=== PATIENT | female | born 1960 | race American Indian/Alaskan Native ===

== ENCOUNTER 2018-06-12 00:26 | Inpatient (IN) | payer OTHER ==
[2018-06-12] MEDS ORDERED: ATIVAN IM PRN (00:35)
--- NOTE | 2018-06-12 00:37 | Emergency Department Report ---
ED General Adult HPI - General Chief complaint: Overdose Stated complaint: POSS OD Time Seen by Provider: 06/12/18 00:34 Source: patient, EMS (verbal report received from EMS.ems notes not available at time of chart dictation), RN notes reviewed, old records reviewed Mode of arrival: Stretcher Limitations: Altered Mental Status, Physical Limitation - History of Present Illness Initial comments: This is a 57-year-old female with a history of psychiatric disease, who was brought to the hospital by emergency medical services for presumed overdose. EM S reports they were contacted by family, and found the patient in a stretcher, with an empty pill bottle. It is unknown what time the alleged ingestion took place, an unknown how many tablets the patient took, and it is unknown what the intention of the ingestion was. It is unknown if the patient has coingestions. In the emergency room, the patient is sleepy, protecting her airway, not able to answer open-ended or closing the questions. Currently, no family is available for collateral information. Patient has a Klonopin prescription, 0.5 mg, 60 tablets, that was dispensed on the of this month. No additional history is available at this time. -: unknown Radiation: other (patient not able to describe radiation, qualitative nature of symptoms, exacerbating or relieving factors.) Quality: other Consistency: other Improves with: other Worsens with: other Associated Symptoms: other - Related Data Home Medications Medication Instructions Recorded Confirmed Last Taken Cetirizine HCl [ZyrTEC] 10 mg PO DAILY 02/25/14 03/14/15 03/05/14 09:00 Citalopram Hydrobromide [celeXA] 40 mg PO DAILY 02/25/14 03/14/15 03/09/14 12:00 Fluticasone (Nf) [Flovent HFA] 1 puff IH DAILY 02/25/14 03/14/15 03/08/14 Albuterol *Only Ed* [Proventil 2.5 mg IH Q4H PRN 03/14/15 03/14/15 Unknown 0.5% NEBS] DULoxetine [Cymbalta] 30 mg PO BID 03/14/15 03/14/15 Unknown Morphine ER [Ms Contin ER] 15 mg PO BID 03/14/15 03/14/15 Unknown clonazePAM [KlonoPIN] 2 mg PO DAILY 03/14/15 03/14/15 Unknown diphenhydrAMINE [Benadryl CAP] 50 mg PO Q8HR PRN 03/14/15 03/14/15 Unknown Previous Rx's Medication Instructions Recorded Last Taken Type Tapentadol [Nucynta] 75 mg PO Q6H #60 tablet 03/12/14 Unknown Rx Allergies Allergy/AdvReac Type Severity Reaction Status Date / Time codeine Allergy Hives,Itchi Verified 03/14/15 22:44 ng ED Review of Systems ROS: Stated complaint: POSS OD Other details as noted in HPI Comment: Unobtainable due to pts medical conditions ED Past Medical Hx - Past Medical History Hx Congestive Heart Failure: No Hx Diabetes: No Hx Arthritis: Yes Hx Psychiatric Treatment: Yes (PTSD/Depression/ Anxiety) Hx Asthma: No Hx COPD: No - Surgical History Additional Surgical History: Lumbar fusion; Knee Sx, Back SX, right foot fracture in December - Social History Smoking Status: Unknown if ever smoked Substance Use Type: Prescribed - Medications Home Medications: Home Medications Medication Instructions Recorded Confirmed Last Taken Type Cetirizine HCl [ZyrTEC] 10 mg PO DAILY 02/25/14 03/14/15 03/05/14 09:00 History Citalopram Hydrobromide [celeXA] 40 mg PO DAILY 02/25/14 03/14/15 03/09/14 12:00 History Fluticasone (Nf) [Flovent HFA] 1 puff IH DAILY 02/25/14 03/14/15 03/08/14 History Tapentadol [Nucynta] 75 mg PO Q6H #60 tablet 03/12/14 03/14/15 Unknown Rx Albuterol *Only Ed* [Proventil 2.5 mg IH Q4H PRN 03/14/15 03/14/15 Unknown History 0.5% NEBS] DULoxetine [Cymbalta] 30 mg PO BID 03/14/15 03/14/15 Unknown History Morphine ER [Ms Contin ER] 15 mg PO BID 03/14/15 03/14/15 Unknown History clonazePAM [KlonoPIN] 2 mg PO DAILY 03/14/15 03/14/15 Unknown History diphenhydrAMINE [Benadryl CAP] 50 mg PO Q8HR PRN 03/14/15 03/14/15 Unknown History ED Physical Exam - General Limitations: Altered Mental Status, Other General appearance: lethargic, obese - Head Head exam: Present: atraumatic, normocephalic - Eye Eye exam: Present: normal appearance, PERRL, EOMI - ENT ENT exam: Present: normal exam, normal orophraynx, mucous membranes moist, normal external ear exam - Neck Neck exam: Present: normal inspection, full ROM. Absent: tenderness, meningismus - Respiratory Respiratory exam: Present: decreased breath sounds. Absent: respiratory distr ess, wheezes, rales, rhonchi, stridor - Cardiovascular Cardiovascular Exam: Present: regular rate, normal rhythm, normal heart sounds. Absent: bradycardia, tachycardia, irregular rhythm, systolic murmur, diastolic murmur, rubs, gallop - GI/Abdominal GI/Abdominal exam: Present: soft. Absent: distended, tenderness, guarding, rebound, rigid, pulsatile mass - Extremities Exam Extremities exam: Present: normal inspection (moving 4 extremities spontaneously), other (2+ pulses noted in the bilateral upper, lower extremities. Compartments soft. No long bony tenderness. The pelvis is stable.). Absent: pedal edema, joint swelling, calf tenderness - Back Exam Back exam: Present: normal inspection. Absent: tenderness, CVA tenderness (R), paraspinal tenderness, vertebral tenderness - Neurological Exam Neurological exam: Present: altered, other (plan 4 extremities spontaneously. Detailed neurologic examination not possible secondary to intoxication, depressed mental status) - Psychiatric Psychiatric exam: Present: depressed - Skin Skin exam: Present: warm, dry, intact, normal color. Absent: rash ED Course Vital Signs 06/12/18 06/12/18 06/12/18 00:32 00:45 01:00 Pulse Rate 81 98 H 82 Respiratory 17 15 19 Rate Blood Pressure 129/85 114/73 O2 Sat by Pulse 94 Oximetry 06/12/18 01:15 Pulse Rate 88 Respiratory 21 Rate Blood Pressure 114/73 O2 Sat by Pulse 91 Oximetry - Reevaluation(s) Reevaluation #1: 06/12/18 00:56 Differential diagnosis, including not limited to: Overdose, suicidality, intracranial lesion, electrolyte derangement Assessment and plan: 57-year-old female with probable overdose, altered, but protecting her airway, saturating at 97% on room air, with no history of trauma, no physical examination evidence to suggest traumatic injury. The patient is placed on a 1013. Screening laboratory studies obtained. IV, monitor, supplemental oxygen administered, will discuss with the [place] [facility] once her initial diagnostics have resulted. The patient is not a charcoal candidate as she has a depressed mental status, at her time of ingestion is unknown. Reevaluation #2: 06/12/18 02:[address] scan of the brain is negative. Screening laboratory studies unremarkable with the exception of elevated blood alcohol level. X-ray of the chest suggest atelectasis versus aspiration pneumonia. Patient continues to be sleepy. Contacted [facility], and discussed the case with the sales donor recruitment representative, Candy, who agrees that the patient would not benefit from charcoal given her altered mental status, and agrees with supportive care. Given chronic history of benzodiazepine use, no Romazicon is recommended, as it may precipitate seizures. As per [facility], benzodiazepine allegedly ingested may have a prolonged half-life, and we will therefore admit the patient to the medical service for cardiac monitoring and airway monitoring. Case is presented to the Hospital physician, Dr. Quinn, who has accepted the patient to the medical service. Discussed with patient's , explained significance of laboratory studies and 1013. The articulates understanding. The patient requires hospitalization because she is altered and requires cardiac monitoring and airway monitoring. ED Medical Decision Making - Lab Data Result diagrams: 06/12/18 00:40 06/12/18 00:40 Vital Signs 06/12/18 06/12/18 06/12/18 00:32 00:45 01:00 Pulse Rate 81 98 H 82 Respiratory 17 15 19 Rate Blood Pressure 129/85 114/73 O2 Sat by Pulse 94 Oximetry 06/12/18 01:15 Pulse Rate 88 Respiratory 21 Rate Blood Pressure 114/73 O2 Sat by Pulse 91 Oximetry Lab Results 06/12/18 06/12/18 06/12/18 Range/Units 00:40 00:40 00:40 WBC 6.9 (4.5-11.0) K/mm3 RBC 3.90 (3.65-5.03) M/mm3 Hgb 12.0 (10.1-14.3) gm/dl Hct 34.0 (30.3-42.9) % MCV 87 (79-97) fl MCH 31 (28-32) pg MCHC 35 H (30-34) % RDW 14.1 (13.2-15.2) % Plt Count 312 (140-440) K/mm3 Sodium 139 (137-145) mmol/L Potassium 4.0 (3.6-5.0) mmol/L Chloride 101.8 (98-107) mmol/L Carbon Dioxide 23 (22-30) mmol/L Anion Gap 18 mmol/L BUN 10 (7-17) mg/dL Creatinine 0.8 (0.7-1.2) mg/dL Estimated GFR > 60 ml/min BUN/Creatinine Ratio 13 % Glucose 79 (65-100) mg/dL Lactic Acid (0.7-2.0) mmol/L Calcium 9.0 (8.4-10.2) mg/dL Magnesium 2.00 (1.7-2.3) mg/dL Total Bilirubin 0.30 (0.1-1.2) mg/dL AST 32 (5-40) units/L ALT 26 (7-56) units/L Alkaline Phosphatase 122 (35-129) units/L Total Creatine Kinase 150 H (30-135) units/L Total Protein 7.6 (6.3-8.2) g/dL Albumin 4.0 (3.9-5) g/dL Albumin/Globulin Ratio 1.1 % Urine Color (Yellow) Urine Turbidity (Clear) Urine pH (5.0-7.0) Ur Specific [place] (1.003-1.030) Urine Protein (Negative) mg/dL Urine Glucose (UA) (Negative) mg/dL Urine Ketones (Negative) mg/dL Urine Blood (Negative) Urine Nitrite (Negative) Urine Bilirubin (Negative) Urine Urobilinogen (<2.0) mg/dL Ur Leukocyte Esterase (Negative) Urine WBC (Auto) (0.0-6.0) /HPF Urine RBC (Auto) (0.0-6.0) /HPF Hyaline Casts /LPF Salicylates < 0.3 L (2.8-20.0) mg/dL Urine Opiates Screen Urine Methadone Screen Acetaminophen (10.0-30.0) ug/mL Ur Barbiturates Screen Ur Phencyclidine Scrn Ur Amphetamines Screen U Benzodiazepines Scrn Urine Cocaine Screen U Marijuana (THC) Screen Drugs of Abuse Note Plasma/Serum Alcohol (0-0.07) % 06/12/18 06/12/18 06/12/18 Range/Units 00:40 00:40 01:21 WBC (4.5-11.0) K/mm3 RBC (3.65-5.03) M/mm3 Hgb (10.1-14.3) gm/dl Hct (30.3-42.9) % MCV (79-97) fl MCH (28-32) pg MCHC (30-34) % RDW (13.2-15.2) % Plt Count (140-440) K/mm3 Sodium (137-145) mmol/L Potassium (3.6-5.0) mmol/L Chloride (98-107) mmol/L Carbon Dioxide (22-30) mmol/L Anion Gap mmol/L BUN (7-17) mg/dL Creatinine (0.7-1.2) mg/dL Estimated GFR ml/min BUN/Creatinine Ratio % Glucose (65-100) mg/dL Lactic Acid (0.7-2.0) mmol/L Calcium (8.4-10.2) mg/dL Magnesium (1.7-2.3) mg/dL Total Bilirubin (0.1-1.2) mg/dL AST (5-40) units/L ALT (7-56) units/L Alkaline Phosphatase (35-129) units/L Total Creatine Kinase (30-135) units/L Total Protein (6.3-8.2) g/dL Albumin (3.9-5) g/dL Albumin/Globulin Ratio % Urine Color Colorless (Yellow) Urine Turbidity Clear (Clear) Urine pH 6.0 (5.0-7.0) Ur Specific [place] 1.001 L (1.003-1.030) Urine Protein <15 mg/dl (Negative) mg/dL Urine Glucose (UA) Neg (Negative) mg/dL Urine Ketones Neg (Negative) mg/dL Urine Blood Neg (Negative) Urine Nitrite Neg (Negative) Urine Bilirubin Neg (Negative) Urine Urobilinogen < 2.0 (<2.0) mg/dL Ur Leukocyte Esterase Neg (Negative) Urine WBC (Auto) < 1.0 (0.0-6.0) /HPF Urine RBC (Auto) 1.0 (0.0-6.0) /HPF Hyaline Casts 1 /LPF Salicylates (2.8-20.0) mg/dL Urine Opiates Screen Urine Methadone Screen Acetaminophen < 5.0 L (10.0-30.0) ug/mL Ur Barbiturates Screen Ur Phencyclidine Scrn Ur Amphetamines Screen U Benzodiazepines Scrn Urine Cocaine Screen U Marijuana (THC) Screen Drugs of Abuse Note Plasma/Serum Alcohol 0.14 H (0-0.07) % 06/12/18 06/12/18 Range/Units 01:21 01:29 WBC (4.5-11.0) K/mm3 RBC (3.65-5.03) M/mm3 Hgb (10.1-14.3) gm/dl Hct (30.3-42.9) % MCV (79-97) fl MCH (28-32) pg MCHC (30-34) % RDW (13.2-15.2) % Plt Count (140-440) K/mm3 Sodium (137-145) mmol/L Potassium (3.6-5.0) mmol/L Chloride (98-107) mmol/L Carbon Dioxide (22-30) mmol/L Anion Gap mmol/L BUN (7-17) mg/dL Creatinine (0.7-1.2) mg/dL Estimated GFR ml/min BUN/Creatinine Ratio % Glucose (65-100) mg/dL Lactic Acid 3.50 H* (0.7-2.0) mmol/L Calcium (8.4-10.2) mg/dL Magnesium (1.7-2.3) mg/dL Total Bilirubin (0.1-1.2) mg/dL AST (5-40) units/L ALT (7-56) units/L Alkaline Phosphatase (35-129) units/L Total Creatine Kinase (30-135) units/L Total Protein (6.3-8.2) g/dL Albumin (3.9-5) g/dL Albumin/Globulin Ratio % Urine Color (Yellow) Urine Turbidity (Clear) Urine pH (5.0-7.0) Ur Specific [place] (1.003-1.030) Urine Protein (Negative) mg/dL Urine Glucose (UA) (Negative) mg/dL Urine Ketones (Negative) mg/dL Urine Blood (Negative) Urine Nitrite (Negative) Urine Bilirubin (Negative) Urine Urobilinogen (<2.0) mg/dL Ur Leukocyte Esterase (Negative) Urine WBC (Auto) (0.0-6.0) /HPF Urine RBC (Auto) (0.0-6.0) /HPF Hyaline Casts /LPF Salicylates (2.8-20.0) mg/dL Urine Opiates Screen Presumptive negative Urine Methadone Screen Presumptive negative Acetaminophen (10.0-30.0) ug/mL Ur Barbiturates Screen Presumptive negative Ur Phencyclidine Scrn Presumptive negative Ur Amphetamines Screen Presumptive negative U Benzodiazepines Scrn Presumptive negative Urine Cocaine Screen Presumptive negative U Marijuana (THC) Screen Presumptive negative Drugs of Abuse Note Disclamer Plasma/Serum Alcohol (0-0.07) % - EKG Data -: EKG Interpreted by Nh EKG shows normal: sinus rhythm Rate: normal - EKG Data When compared to previous EKG there are: previous EKG unavailable 06/12/18 00:57 Sinus, 82 bpm, left axis deviation, left anterior fascicular block, low voltage in the lateral leads, prolonged [place] interval, abnormal EKG, not consistent with ST elevation myocardial infarction. - Radiology Data Radiology results: pending, report reviewed, image reviewed Noncontrast CT scan of the brain is negative. X-ray of the chest suggest bilateral atelectasis versus pneumonia Critical care attestation.: If time is entered above; I have spent that time in minutes in the direct care of this critically ill patient, excluding procedure time. ED Disposition Clinical Impression: Overdose Qualifiers: Encounter type: initial encounter Injury intent: undetermined intent Qualified Code(s): T50.904A - Poisoning by unspecified drugs, medicaments and biological substances, undetermined, initial encounter Disposition: -09 OP ADMIT IP TO THIS HOSP Is pt being admited?: Yes Condition: Fair Referrals: GILBERT COX MD [Primary Care Provider] - 3-5 Days
--- NOTE | 2018-06-12 01:06 | XRay Report ---
FINAL REPORT EXAM: XR CHEST 1V AP HISTORY: overdose resp depression COMPARISON: None available. FINDINGS: Frontal view(s) of the chest obtained. Cardiac silhouette within normal limits. Mild patchy opacities at the lung bases concerning for atelectasis and/or pneumonia. No pneumothorax. IMPRESSION: Mild patchy opacities at the lung bases concerning for atelectasis and/or pneumonia.
[2018-06-12 01:17] LABS: Mean Corpuscular HGB Conc 35 % (30-34); Mean Corpuscular Volume 87 fl (79-97); Platelet Count 312 K/mm3 (140-440); Red Cell Distribution Width 14.1 % (13.2-15.2)
[2018-06-12 01:25] LABS: BUN/Creatinine Ratio 13; Blood Urea Nitrogen 10 mg/dL (7-17); Hemolysis Index 115
[2018-06-12] MEDS ORDERED: LEVAQUIN 750MG/150ML 750 MG/150 ML BAG IV ONE (01:25)
[2018-06-12 01:50] LABS: Alanine Aminotransferase 26 units/L (7-56)
[2018-06-12 01:56] LABS: Bilirubin,Urine NEG (Negative); Blood,Urine NEG (Negative); Color,Urine Colorless (Yellow); Hyaline Casts,Urine 1 /LPF; Protein,Urine <15 mg/dL mg/dL (Negative); Urobilinogen,Urine < 2.0 mg/dL (<2.0); WBC,Urine < 1.0 /HPF (0.0-6.0)
--- NOTE | 2018-06-12 01:59 | Cat Scan Report ---
FINAL REPORT EXAM: CT HEAD/BRAIN WO CON HISTORY: ams COMPARISON: None available. TECHNIQUE: Axial images obtained skull base through vertex. FINDINGS: No acute intracranial hemorrhage, midline shift or pathologic extra axial fluid collection. Ventricle s and cisterns are normal in size and configuration for the patient's age. Kendrick-white differentiation preserved. Calvarium grossly intact. Visualized ocular globes are grossly unremarkable. Minimal muco jacqueline thickening the visualized paranasal sinuses. Mastoid air cells are clear. IMPRESSION: No grossly acute intracranial abnormality.
[2018-06-12 02:03] LABS: Amphetamine Screen,Urine PRESUMPTIVE NEGATIVE; Benzodiazepines Screen,Urine PRESUMPTIVE NEGATIVE; Cannabinoid Screen,Urine PRESUMPTIVE NEGATIVE; Cocaine Screen,Urine PRESUMPTIVE NEGATIVE; Methadone Screen,Urine PRESUMPTIVE NEGATIVE; Opiate Screen,Urine PRESUMPTIVE NEGATIVE
[2018-06-12] MEDS ORDERED: NACL 0.9% 1000 ML 1,000 ML IV ONE (02:23)
[2018-06-12] MEDS ORDERED: D5/0.45NS 1,000 ML IV SCH (03:00)
[2018-06-12] MEDS ORDERED: ZOFRAN IV PRN (04:59)
[2018-06-12] MEDS ORDERED: SODIUM CHLORIDE FLUSH SYRINGE 10 ML IV PRN (04:59)
[2018-06-12] MEDS ORDERED: TYLENOL PO PRN (04:59)
--- NOTE | 2018-06-12 04:59 | History and Physical Report ---
History of Present Illness Date of examination: 06/12/18 History of present illness: 57-year-old woman was brought to the emergency room for evaluation. Patient got a new prescription of Klonopin on May 30 in all the pills are gone, she is being evaluated for possible overdose. review of system unavailable PAST MEDICAL HISTORY: Unknown PAST SURGICAL HISTORY: Unknown SOCIAL HISTORY: Unknown FAMILY HISTORY: Unknown Medications and Allergies Allergies Allergy/AdvReac Type Severity Reaction Status Date / Time codeine Allergy Hives,Itchi Verified 03/14/15 22:44 ng Home Medications Medication Instructions Recorded Confirmed Last Taken Type Cetirizine HCl [ZyrTEC] 10 mg PO DAILY 02/25/14 03/14/15 03/05/14 09:00 History Citalopram Hydrobromide [celeXA] 40 mg PO DAILY 02/25/14 03/14/15 03/09/14 12:00 History Fluticasone (Nf) [Flovent HFA] 1 puff IH DAILY 02/25/14 03/14/15 03/08/14 History Tapentadol [Nucynta] 75 mg PO Q6H #60 tablet 03/12/14 03/14/15 Unknown Rx Albuterol *Only Ed* [Proventil 2.5 mg IH Q4H PRN 03/14/15 03/14/15 Unknown History 0.5% NEBS] DULoxetine [Cymbalta] 30 mg PO BID 03/14/15 03/14/15 Unknown History Morphine ER [Ms Contin ER] 15 mg PO BID 03/14/15 03/14/15 Unknown History clonazePAM [KlonoPIN] 2 mg PO DAILY 03/14/15 03/14/15 Unknown History diphenhydrAMINE [Benadryl CAP] 50 mg PO Q8HR PRN 03/14/15 03/14/15 Unknown History Active Meds: Active Medications Dextrose/Sodium Chloride (D5/0.45ns) 1,000 mls @ 0 mls/hr IV DIRECT OMAR Lorazepam (Ativan) 2 mg IM Q4HR PRN PRN Reason: Agitation Exam - Physical Exam Narrative exam: General Apperance: The patient lying in bed, breathing comfortable HEENT: Normocephalic, atraumatic. Pupils equally round and reactive to light, EOMI, no sclericterus or JVD or thyromegaly or nodule. , no carotid bruit, mucous membranes moist, no exudate or erythema Heart: S1-S2, regular is rhythm Lungs: Clear to auscultation bilaterally, breathing comfortable Abdomen: Positive bowel sounds, soft, nontender, nondistended, no organomegaly Extremities: No edema cyanosis clubbing Skin: no rash, nodule, warm and dry Neuro: sedated - Constitutional Vitals: Temp Pulse Resp BP Pulse Ox 98.3 F 72 17 122/67 97 06/12/18 02:21 06/12/18 04:31 06/12/18 04:31 06/12/18 04:31 06/12/18 04:31 Results - Labs CBC & Chem 7: 06/12/18 00:40 06/12/18 00:40 Labs: Abnormal lab results 06/12/18 06/12/18 06/12/18 Range/Units 00:40 00:40 00:40 MCHC 35 H (30-34) % Lactic Acid (0.7-2.0) mmol/L Total Creatine Kinase 150 H (30-135) units/L Ur Specific [place] (1.003-1.030) Salicylates < 0.3 L (2.8-20.0) mg/dL Acetaminophen (10.0-30.0) ug/mL Plasma/Serum Alcohol (0-0.07) % 06/12/18 06/12/18 06/12/18 Range/Units 00:40 00:40 01:21 MCHC (30-34) % Lactic Acid (0.7-2.0) mmol/L Total Creatine Kinase (30-135) units/L Ur Specific [place] 1.001 L (1.003-1.030) Salicylates (2.8-20.0) mg/dL Acetaminophen < 5.0 L (10.0-30.0) ug/mL Plasma/Serum Alcohol 0.14 H (0-0.07) % 06/12/18 06/12/18 Range/Units 01:29 02:30 MCHC (30-34) % Lactic Acid 3.50 H* 3.00 H* (0.7-2.0) mmol/L Total Creatine Kinase (30-135) units/L Ur Specific [place] (1.003-1.030) Salicylates (2.8-20.0) mg/dL Acetaminophen (10.0-30.0) ug/mL Plasma/Serum Alcohol (0-0.07) % - Imaging and Cardiology Chest x-ray: report reviewed CT Scan - head: report reviewed Assessment and Plan Assessment Possible overdose Sepsis Pneumonia, aspiration Plan Admit medicine Start IV fluids, zosyn, consult psych DVT prophylaxis
[2018-06-12] MEDS ORDERED: NACL 0.9% 1000 ML 2,000 ML IV ONE (06:40)
[2018-06-12] MEDS ORDERED: NACL 0.9% 1000 ML 1,000 ML ONE (08:50)
[2018-06-12] MEDS ORDERED: ZOSYN/NS 4.5GM/100ML 4.5 GM/100 ML VIAL IV ONE (08:53)
[2018-06-12] MEDS: ZOSYN/NS 4.5GM/100ML 4.5 GM/100 ML VIAL IV SCH ×3 (09:01→23:05)
[2018-06-12] MEDS: LOVENOX SUB-Q SCH (12:27)
[2018-06-12] MEDS: NACL 0.9% 1000 ML 1,000 ML IV SCH ×2 (12:27→19:47)
[2018-06-12] MEDS: SODIUM CHLORIDE FLUSH SYRINGE 10 ML IV SCH ×2 (12:28→22:18)
--- NOTE | 2018-06-12 15:28 | Event Note ---
Date: 06/12/18 Patient was seen and evaluated this morning, by the time I saw patient alert and oriented. She claims that she took alot of clonazepam but UDS is negative. patient admitted on 1012 and mental health consulted.
--- NOTE | 2018-06-12 16:02 | Consultation ---
History of Present Illness - Reason for Consult Consult date: 06/12/18 Reason for consult: Mental Healt Evaluation Requesting physician: LOLY MATHIAS - Chief Complaint Chief complaint: "I am overwhelmed" - History of Present Psychiatric Illness 57-year-old AA female who presented to the ER for possible overdose and ETOH. Today the patient is calm, but withdrawn during the assessment. She stated that her she took several Klonopin pills to kill herself. Per her UDS, she was negative for benzos. She stated that she is going through a lot with several deaths in her family. She did not want to discuss her stressors when asked. She did state that she has a hx of depression/anxiety and take Cymbalta. She was asked several more questions about her mental health, but she asked to be seen tomorrow. She would not confirm or deny SI's when asked. The patient denies HiI's and AVH's. She acknowledged "up and down sleep," but denies a poor appetite. She denies recreational drug use. Medications and Allergies Allergies Allergy/AdvReac Type Severity Reaction Status Date / Time codeine Allergy Hives,Itchi Verified 03/14/15 22:44 ng Home Medications Medication Instructions Recorded Confirmed Last Taken Type Cetirizine HCl [ZyrTEC] 10 mg PO DAILY 02/25/14 06/12/18 03/05/14 09:00 History Fluticasone (Nf) [Flovent HFA] 1 puff IH DAILY 02/25/14 06/12/18 03/08/14 History Albuterol *Only Ed* [Proventil 2.5 mg IH Q4H PRN 03/14/15 06/12/18 Unknown History 0.5% NEBS] DULoxetine [Cymbalta] 60 mg PO DAILY 03/14/15 06/12/18 Unknown History clonazePAM [KlonoPIN] 0.5 mg PO BID 03/14/15 06/12/18 Unknown History diphenhydrAMINE [Benadryl CAP] 50 mg PO Q8HR PRN 03/14/15 06/12/18 Unknown History fentaNYL [Fentanyl] 25 mcg TD Q72HR 06/12/18 06/13/18 06/10/18 History Active Meds: Active Medications Acetaminophen (Tylenol) 650 mg PO Q4H PRN PRN Reason: Pain MILD(1-3)/Fever >100.5/ENRIQUEZ Last Admin: 06/12/18 12:32 Dose: 650 mg Documented by: Enoxaparin Sodium (Lovenox) 40 mg SUB-Q QDAY [facility] Last Admin: 06/12/18 12:27 Dose: Not Given Documented by: Sodium Chloride (Nacl 0.9% 1000 Ml) 1,000 mls @ 150 mls/hr IV DIRECT OMAR Last Admin: 06/12/18 12:27 Dose: 150 mls/hr Documented by: Piperacillin Sod/Tazobactam Sod (Zosyn/Ns 4.5gm/100ml) 4.5 gm in 100 mls @ 200 mls/hr IV Q8H OMAR; Protocol Last Admin: 06/12/18 09:01 Dose: 200 mls/hr Documented by: Lorazepam (Ativan) 2 mg IM Q4HR PRN PRN Reason: Agitation Ondansetron HCl (Zofran) 4 mg IV Q8H PRN PRN Reason: Nausea And Vomiting Sodium Chloride (Sodium Chloride Flush Syringe 10 Ml) 10 ml IV BID [facility] Last Admin: 06/12/18 12:28 Dose: 10 ml Documented by: Sodium Chloride (Sodium Chloride Flush Syringe 10 Ml) 10 ml IV PRN PRN PRN Reason: LINE FLUSH Past psychiatric history - Past Medical History Past Medical History: other (Arthritis ) Past Surgical History: No surgical history - past Psychiatric treatment and history psychiatric treatment history: Dx with Depression while in the [employer]. Denies a fam psy hx. - Social History Social history: lives with family Mental Status Exam - Vital signs Last Vital Signs Temp 97.7 F 06/12/18 11:11 Pulse 77 06/12/18 11:11 Resp 20 06/12/18 11:11 BP 118/72 06/12/18 11:11 Pulse Ox 100 06/12/18 11:11 - Exam Narrative exam: MSE: Appearance: calm Behavior: poor eye contact eye contact Speech: regular rate and tone Mood: withdrawn Affect: congruent to mood Thought Process: circumstantial Thought Content: denies HI's and AVH's Motor Activity: ambulatory Cognition: A/O x3 Insight: variable Judgment:variable Results Result Diagrams: 06/12/18 00:40 06/12/18 00:40 Abnormal lab results 06/12/18 06/12/18 06/12/18 Range/Units 00:40 00:40 00:40 MCHC 35 H (30-34) % Lactic Acid (0.7-2.0) mmol/L Total Creatine Kinase 150 H (30-135) units/L Ur Specific [place] (1.003-1.030) Salicylates < 0.3 L (2.8-20.0) mg/dL Acetaminophen (10.0-30.0) ug/mL Plasma/Serum Alcohol (0-0.07) % 06/12/18 06/12/18 06/12/18 Range/Units 00:40 00:40 01:21 MCHC (30-34) % Lactic Acid (0.7-2.0) mmol/L Total Creatine Kinase (30-135) units/L Ur Specific [place] 1.001 L (1.003-1.030) Salicylates (2.8-20.0) mg/dL Acetaminophen < 5.0 L (10.0-30.0) ug/mL Plasma/Serum Alcohol 0.14 H (0-0.07) % 06/12/18 06/12/18 06/12/18 Range/Units 01:29 02:30 05:45 MCHC (30-34) % Lactic Acid 3.50 H* 3.00 H* 2.40 H* (0.7-2.0) mmol/L Total Creatine Kinase (30-135) units/L Ur Specific [place] (1.003-1.030) Salicylates (2.8-20.0) mg/dL Acetaminophen (10.0-30.0) ug/mL Plasma/Serum Alcohol (0-0.07) % All other labs normal. Assessment and Plan Assessment and plan: Impression: MDD, Severe Type. Alcohol Intoxication. Hx of Anxiety DO. Today the patient is calm, but withdrawn during the assessment. QTc 452. UDS is negative. DDx: R/O Bipolar DO, Alcohol Induced Mood DO Recommendation/Plan: Continue 1013 and start Cymbalta 60 mg PO for depression/anxiety and Vistaril 25 mg PO BID for anxiety. Discussed possible suicidality/medication induced lucas with the patient reference Cymbalta. Dispo: The patient will be referred to inpatient psy services once medically clear. Staffed with Dr Cuenca.
[2018-06-12] MEDS: CYMBALTA PO SCH (18:08)
[2018-06-12] MEDS: VISTARIL PO SCH ×2 (19:48→23:03)
[2018-06-13] MEDS: NACL 0.9% 1000 ML 1,000 ML IV SCH ×2 (01:29→18:47)
[2018-06-13 05:41] LABS: Hematocrit 30.6 % (30.3-42.9); Hemoglobin 10.2 gm/dl (10.1-14.3); Mean Corpuscular HGB Conc 33 % (30-34); Mean Corpuscular Volume 89 fl (79-97); Platelet Count 274 K/mm3 (140-440); Red Blood Count 3.44 M/mm3 (3.65-5.03); Red Cell Distribution Width 14.6 % (13.2-15.2)
[2018-06-13 06:00] LABS: BUN/Creatinine Ratio 14; Blood Urea Nitrogen 13 mg/dL (7-17); Calcium 7.7 mg/dL (8.4-10.2); Hemolysis Index 10
--- NOTE | 2018-06-13 08:00 | Event Note ---
Date: 06/13/18 Patient is medically cleared for discharge to inpatient psych facility.
[2018-06-13 08:34] LABS: Basophils % (Manual) 0 % (0.0-1.8); Eosinophils % (Manual) 0 % (0.0-4.3); Total Cells Counted 100
[2018-06-13 08:35] LABS: Platelet Estimate Consistent w Auto; Poikilocytosis 1+
[2018-06-13] MEDS: ZOSYN/NS 4.5GM/100ML 4.5 GM/100 ML VIAL IV SCH ×3 (10:45→20:36)
[2018-06-13] MEDS: VISTARIL PO SCH ×2 (10:55→21:34)
[2018-06-13] MEDS: CYMBALTA PO SCH (10:55)
[2018-06-13] MEDS: SODIUM CHLORIDE FLUSH SYRINGE 10 ML IV SCH ×2 (10:55→21:34)
[2018-06-13] MEDS: LOVENOX SUB-Q SCH (11:06)
--- NOTE | 2018-06-13 15:24 | Progress Note ---
Assessment and Plan Assessment and plan: Patient was admitted for suspected Klonopin overdose - Patient claims she took a lot of Klonopin and had confusion - UDS was positive Aspiration pneumonia - Patient is on Zosyn DVT prophylaxis - Lovenox Patient is on 1013 Psych is following her Patient is cleared medically and come be discharged on antibiotics once psych cleared her. History Interval history: Patient was seen and evaluated this morning, the shunt was unattended oriented. No fever, chills, or cough Hospitalist Physical - Physical exam Narrative exam: Not in cardiopulmonary distress. The patient is obese. Vital signs as documented. Head exam is unremarkable. No scleral icterus . Neck is without jugular venous distension, thyromegaly, or carotid bruits. Lungs are clear to auscultation. Cardiac exam reveals regular rate and Rhythm. First and second heart sounds normal. No murmurs, rubs or gallops. Abdominal exam reveals normal bowel sounds, no masses, no organomegaly and no aortic enlargement. Extremities are nonedematous and both femoral and pedal pulses are normal. CAN CLEANER: Alert and oriented 3. No focal weakness. - Constitutional Vitals: Temp Pulse Resp BP Pulse Ox 98.0 F 91 H 20 126/65 100 06/13/18 08:10 06/13/18 08:11 06/13/18 08:10 06/13/18 08:10 06/13/18 10:00 Results - Labs CBC & Chem 7: 06/13/18 04:46 06/13/18 04:46 Labs: Laboratory Last Values WBC 6.0 K/mm3 (4.5-11.0) 06/13/18 04:46 RBC 3.44 M/mm3 (3.65-5.03) L 06/13/18 04:46 Hgb 10.2 gm/dl (10.1-14.3) 06/13/18 04:46 Hct 30.6 % (30.3-42.9) 06/13/18 04:46 MCV 89 fl (79-97) 06/13/18 04:46 MCH 30 pg (28-32) 06/13/18 04:46 MCHC 33 % (30-34) 06/13/18 04:46 RDW 14.6 % (13.2-15.2) 06/13/18 04:46 Plt Count 274 K/mm3 (140-440) 06/13/18 04:46 Lymph % (Auto) Neurological Surgery Teacher 06/13/18 04:46 Add Manual Diff Complete 06/13/18 04:46 Total Counted 100 06/13/18 04:46 Seg Neutrophils % Neurological Surgery Teacher 06/13/18 04:46 Seg Neuts % (Manual) 19.0 % (40.0-70.0) L 06/13/18 04:46 Band Neutrophils % 0 % 06/13/18 04:46 Lymphocytes % (Manual) 76.0 % (13.4-35.0) H 06/13/18 04:46 Reactive Lymphs % (Man) 0 % 06/13/18 04:46 Monocytes % (Manual) 5.0 % (0.0-7.3) 06/13/18 04:46 Eosinophils % (Manual) 0 % (0.0-4.3) 06/13/18 04:46 Basophils % (Manual) 0 % (0.0-1.8) 06/13/18 04:46 Metamyelocytes % 0 % 06/13/18 04:46 Myelocytes % 0 % 06/13/18 04:46 Promyelocytes % 0 % 06/13/18 04:46 Blast Cells % 0 % 06/13/18 04:46 Nucleated RBC % Not Reportable 06/13/18 04:46 Seg Neutrophils # Man 1.1 K/mm3 (1.8-7.7) L 06/13/18 04:46 Band Neutrophils # 0.0 K/mm3 06/13/18 04:46 Lymphocytes # (Manual) 4.6 K/mm3 (1.2-5.4) 06/13/18 04:46 Abs React Lymphs (Man) 0.0 K/mm3 06/13/18 04:46 Monocytes # (Manual) 0.3 K/mm3 (0.0-0.8) 06/13/18 04:46 Eosinophils # (Manual) 0.0 K/mm3 (0.0-0.4) 06/13/18 04:46 Basophils # (Manual) 0.0 K/mm3 (0.0-0.1) 06/13/18 04:46 Metamyelocytes # 0.0 K/mm3 06/13/18 04:46 Myelocytes # 0.0 K/mm3 06/13/18 04:46 Promyelocytes # 0.0 K/mm3 06/13/18 04:46 Blast Cells # 0.0 K/mm3 06/13/18 04:46 WBC Morphology Not Reportable 06/13/18 04:46 Hypersegmented Neuts Not Reportable 06/13/18 04:46 Hyposegmented Neuts Not Reportable 06/13/18 04:46 Hypogranular Neuts Not Reportable 06/13/18 04:46 Smudge Cells Not Reportable 06/13/18 04:46 Toxic Granulation Not Reportable 06/13/18 04:46 Toxic Vacuolation Not Reportable 06/13/18 04:46 Dohle Bodies Not Reportable 06/13/18 04:46 Pelger-Huet Anomaly Not Reportable 06/13/18 04:46 Kate Rods Not Reportable 06/13/18 04:46 Platelet Estimate Consistent w auto 06/13/18 04:46 Clumped Platelets Not Reportable 06/13/18 04:46 Plt Clumps, EDTA Not Reportable 06/13/18 04:46 Large Platelets Not Reportable 06/13/18 04:46 Giant Platelets Not Reportable 06/13/18 04:46 Platelet Satelliting Not Reportable 06/13/18 04:46 Plt Morphology Comment Not Reportable 06/13/18 04:46 RBC Morphology Not Reportable 06/13/18 04:46 Dimorphic RBCs Not Reportable 06/13/18 04:46 Polychromasia Not Reportable 06/13/18 04:46 Hypochromasia Not Reportable 06/13/18 04:46 Poikilocytosis 1+ 06/13/18 04:46 Anisocytosis Not Reportable 06/13/18 04:46 Microcytosis Not Reportable 06/13/18 04:46 Macrocytosis Not Reportable 06/13/18 04:46 Spherocytes Not Reportable 06/13/18 04:46 Pappenheimer Bodies Not Reportable 06/13/18 04:46 Sickle Cells Not Reportable 06/13/18 04:46 Target Cells Not Reportable 06/13/18 04:46 Tear Drop Cells Not Reportable 06/13/18 04:46 Ovalocytes Not Reportable 06/13/18 04:46 Helmet Cells Not Reportable 06/13/18 04:46 Nielsen-[place] Bodies Not Reportable 06/13/18 04:46 Gay Rings Not Reportable 06/13/18 04:46 Pete Cells Not Reportable 06/13/18 04:46 Bite Cells Not Reportable 06/13/18 04:46 Crenated Cell Not Reportable 06/13/18 04:46 Elliptocytes Not Reportable 06/13/18 04:46 Acanthocytes (Spur) Not Reportable 06/13/18 04:46 Rouleaux Not Reportable 06/13/18 04:46 Hemoglobin C Crystals Not Reportable 06/13/18 04:46 Schistocytes Not Reportable 06/13/18 04:46 Malaria parasites Not Reportable 06/13/18 04:46 Tres Bodies Not Reportable 06/13/18 04:46 Hem Pathologist Commnt No 06/13/18 04:46 Sodium 142 mmol/L (137-145) 06/13/18 04:46 Potassium 4.0 mmol/L (3.6-5.0) 06/13/18 04:46 Chloride 110.7 mmol/L (98-107) H 06/13/18 04:46 Carbon Dioxide 23 mmol/L (22-30) 06/13/18 04:46 Anion Gap 12 mmol/L 06/13/18 04:46 BUN 13 mg/dL (7-17) 06/13/18 04:46 Creatinine 0.9 mg/dL (0.7-1.2) 06/13/18 04:46 Estimated GFR > 60 ml/min 06/13/18 04:46 BUN/Creatinine Ratio 14 % 06/13/18 04:46 Glucose 95 mg/dL (65-100) 06/13/18 04:46 Lactic Acid 1.80 mmol/L (0.7-2.0) 06/12/18 20:13 Calcium 7.7 mg/dL (8.4-10.2) L 06/13/18 04:46 Magnesium 2.00 mg/dL (1.7-2.3) 06/12/18 00:40 Total Bilirubin 0.30 mg/dL (0.1-1.2) 06/12/18 00:40 AST 32 units/L (5-40) 06/12/18 00:40 ALT 26 units/L (7-56) 06/12/18 00:40 Alkaline Phosphatase 122 units/L (35-129) 06/12/18 00:40 Total Creatine Kinase 150 units/L (30-135) H 06/12/18 00:40 Total Protein 7.6 g/dL (6.3-8.2) 06/12/18 00:40 Albumin 4.0 g/dL (3.9-5) 06/12/18 00:40 Albumin/Globulin Ratio 1.1 % 06/12/18 00:40 Urine Color Colorless (Yellow) 06/12/18 01:21 Urine Turbidity Clear (Clear) 06/12/18 01:21 Urine pH 6.0 (5.0-7.0) 06/12/18 01:21 Ur Specific [place] 1.001 (1.003-1.030) L 06/12/18 01:21 Urine Protein <15 mg/dl mg/dL (Negative) 06/12/18 01:21 Urine Glucose (UA) Neg mg/dL (Negative) 06/12/18 01:21 Urine Ketones Neg mg/dL (Negative) 06/12/18 01:21 Urine Blood Neg (Negative) 06/12/18 01:21 Urine Nitrite Neg (Negative) 06/12/18 01:21 Urine Bilirubin Neg (Negative) 06/12/18 01:21 Urine Urobilinogen < 2.0 mg/dL (<2.0) 06/12/18 01:21 Ur Leukocyte Esterase Neg (Negative) 06/12/18 01:21 Urine WBC (Auto) < 1.0 /HPF (0.0-6.0) 06/12/18 01:21 Urine RBC (Auto) 1.0 /HPF (0.0-6.0) 06/12/18 01:21 Hyaline Casts 1 /LPF 06/12/18 01:21 Salicylates < 0.3 mg/dL (2.8-20.0) L 06/12/18 00:40 Urine Opiates Screen Presumptive negative 06/12/18 01:21 Urine Methadone Screen Presumptive negative 06/12/18 01:21 Acetaminophen < 5.0 ug/mL (10.0-30.0) L 06/12/18 00:40 Ur Barbiturates Screen Presumptive negative 06/12/18 01:21 Ur Phencyclidine Scrn Presumptive negative 01/31/19 01:21 Ur Amphetamines Screen Presumptive negative 06/12/18 01:21 U Benzodiazepines Scrn Presumptive negative 06/12/18 01:21 Urine Cocaine Screen Presumptive negative 06/12/18 01:21 U Marijuana (THC) Screen Presumptive negative 06/12/18 01:21 Drugs of Abuse Note Disclamer 06/12/18 01:21 Plasma/Serum Alcohol 0.14 % (0-0.07) H 06/12/18 00:40
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
[2018-06-13] MEDS: MINIPRESS PO SCH (21:35)
[2018-06-14] MEDS: ZOSYN/NS 4.5GM/100ML 4.5 GM/100 ML VIAL IV SCH ×3 (02:01→16:36)
[2018-06-14 06:01] LABS: BUN/Creatinine Ratio 13; Blood Urea Nitrogen 10 mg/dL (7-17); Calcium 8.1 mg/dL (8.4-10.2); Hemolysis Index 4
[2018-06-14] MEDS: CYMBALTA PO SCH (09:40)
[2018-06-14] MEDS: LOVENOX SUB-Q SCH ×2 (09:40→09:49)
[2018-06-14] MEDS: VISTARIL PO SCH ×2 (09:40→21:24)
[2018-06-14] MEDS: SODIUM CHLORIDE FLUSH SYRINGE 10 ML IV SCH ×2 (09:41→21:30)
--- NOTE | 2018-06-14 12:28 | Progress Note ---
Assessment and Plan - MDD with suicidal attempt Continue with 1013 Cymbalta, Vistaril on processing per psychiatric recommendation - PTSD On Prozac - Overdose with Klonopin, alcohol 1013 Dispo: The patient will be referred to inpatient psy services. Patient is medically stable Subjective Date of service: 06/14/18 Principal diagnosis: drug overdose with suicidal intent, MDD Interval history: Still feels depressed however does no longer ones are soft. Objective - Exam Narrative Exam: Constitutional: Well-nourished well-developed. In no distress Head: Normocephalic atraumatic Eyes: Pupils are equal round and reactive to light Nose: No enlarged turbinates, no septal deviation. Mouth: Moist mucous membranes. Neck: Supple no thyromegaly. No bruit. No JVD Heart: Regular rate and rhythm, S1-S2 normal. No rubs murmurs or gallop Lungs: Clear to auscultation bilaterally. no rales or rhonchi Abdomen: Soft, nontender. Bowel sound are present. Extremities: No edema, no cyanosis, no clubbing. Neuro: Alert oriented Oriented x3. No focal sensory or motor deficit. Skin: No rashes or hyperpigmented spots Musculoskeletal system: No joint pain or swelling Hematological: No petechia or subcutanous hemorrhages. Immunological: No multiple septic spots on the skin Lymphatic: No generalized lymphadenopathy Psychiatry: Euthymic. Calm. - Constitutional Vitals: Vital Signs - 12hr 06/14/18 06/14/18 06/14/18 01:00 07:45 09:00 Temperature 97.3 F L Pulse Rate 91 H 72 88 Respiratory 20 Rate Blood Pressure 124/58 O2 Sat by Pulse 97 Oximetry 06/14/18 10:00 Temperature Pulse Rate Respiratory 20 Rate Blood Pressure O2 Sat by Pulse Oximetry - Labs CBC & Chem 7: 06/13/18 04:46 06/14/18 04:51 Labs: Abnormal lab results 06/14/18 Range/Units 04:51 Chloride 108.6 H (98-107) mmol/L Calcium 8.1 L (8.4-10.2) mg/dL
--- NOTE | 2018-06-14 17:39 | Progress Note ---
Subjective - Reason for Consult Consult date: 06/14/18 Reason for consult: follow up - Chief Complaint Chief complaint: "I'm ok." 57-year-old AA female who presented to the ER for possible overdose and ETOH. Today the patient is calm and cooperative during the assessment. She stated that she made a big mistake by taking several pills to kill herself. She stated that she have attempted suicide twice in the past because of maladaptive coping. She expressed that she wants to go home and not to a psychiatric facility. She states the prazosin is helpful for sleep. She denies side effects. She talked about how she has gone through treatment and learned healthy coping skills. She talked about how she relapsed on alcohol and this led to her overdose. She denies current SI/HI. She is remorseful for her actions. She denies cravings or urges to use alcohol. Mental Status Exam - Vital signs Last Vital Signs Temp 97.7 F 06/14/18 17:15 Pulse 80 06/14/18 17:15 Resp 20 06/14/18 17:15 BP 136/76 06/14/18 17:15 Pulse Ox 99 06/14/18 17:15 Assessment and Plan MSE: Appearance: calm, cooperative Behavior: poor eye contact Speech: regular rate and tone Mood: "okay" Affect: flat Thought Process: circumstantial Thought Content: denies SI/HI's and AVH's Motor Activity: ambulatory Cognition: A/O x3 Insight: variable Judgment:variable Assessment and Plan Impression: MDD, Severe Type. Alcohol Intoxication. Hx of Anxiety DO. Additional Dx: PTSD. Today the patient is calm and cooperative during the assessment. Suicide attempt was related to relapse. She [facility]. DDx: R/O Bipolar DO, Alcohol Induced Mood DO Recommendation/Plan: Continue 1013 and Cymbalta 60 mg PO for depression/anxiety and Vistaril 25 mg PO BID for anxiety. Continue Prazosin 1 mg PO HS for PTDS symptoms. Monitor the patient for hypotension. Dispo: The patient will be referred to inpatient psy services. Consideration of rescinding the 1013 but will continue to monitor the next 24-[address] Kristina Suarez
[2018-06-14] MEDS: MINIPRESS PO SCH (21:25)
[2018-06-15] MEDS: ZOSYN/NS 4.5GM/100ML 4.5 GM/100 ML VIAL IV SCH ×3 (03:00→20:18)
[2018-06-15] MEDS: NACL 0.9% 1000 ML 1,000 ML IV SCH (03:00)
[2018-06-15] MEDS: CYMBALTA PO SCH (10:21)
[2018-06-15] MEDS: VISTARIL PO SCH (10:21)
[2018-06-15] MEDS: SODIUM CHLORIDE FLUSH SYRINGE 10 ML IV SCH ×2 (10:22→22:00)
[2018-06-15] MEDS: LOVENOX SUB-Q SCH (10:22)
--- NOTE | 2018-06-15 12:06 | Progress Note ---
Assessment and Plan - MDD with suicidal attempt Continue with 1013 Cymbalta, Vistaril on processing per psychiatric recommendation - PTSD On Prozac - Overdose with Klonopin, alcohol 1013 Dispo: The patient will be referred to inpatient psy services. Patient is medically stable to be transfered Subjective Date of service: 06/15/18 Principal diagnosis: drug overdose with suicidal intent, MDD Interval history: Still feels depressed however does no longer want to kill herself. wants regular diet Objective - Exam Narrative Exam: Constitutional: Well-nourished well-developed. In no distress Head: Normocephalic atraumatic Eyes: Pupils are equal round and reactive to light Nose: No enlarged turbinates, no septal deviation. Mouth: Moist mucous membranes. Neck: Supple no thyromegaly. No bruit. No JVD Heart: Regular rate and rhythm, S1-S2 normal. No rubs murmurs or gallop Lungs: Clear to auscultation bilaterally. no rales or rhonchi Abdomen: Soft, nontender. Bowel sound are present. Extremities: No edema, no cyanosis, no clubbing. Neuro: Alert oriented Oriented x3. No focal sensory or motor deficit. Skin: No rashes or hyperpigmented spots Musculoskeletal system: No joint pain or swelling Hematological: No petechia or subcutanous hemorrhages. Immunological: No multiple septic spots on the skin Lymphatic: No generalized lymphadenopathy Psychiatry: Euthymic. Calm. - Constitutional Vitals: Vital Signs - 12hr 06/15/18 06/15/18 06/15/18 01:00 04:21 07:38 Temperature 98.2 F 98.2 F Pulse Rate 91 H 84 74 Respiratory 16 16 Rate Blood Pressure 127/40 Blood Pressure 109/47 [Left] O2 Sat by Pulse 97 100 Oximetry - Labs CBC & Chem 7: 06/13/18 04:46 06/14/18 04:51
--- NOTE | 2018-06-15 17:15 | Progress Note ---
Subjective - Reason for Consult Consult date: 06/15/18 Reason for consult: follow up - Chief Complaint Chief complaint: "I'm ready." 57-year-old AA female who presented to the ER for possible overdose and ETOH. Today the patient is calm and cooperative during the assessment. She stated that she made a big mistake by taking several pills to kill herself. She stated that she have attempted suicide twice in the past because of maladaptive coping. She expressed that she wants to go home and not to a psychiatric facility. She states the prazosin is helpful for sleep and states she now gets 2 hours of sleep at a time instead of going for 3 days without sleep. She denies side effects. She talked about how she has gone through treatment and learned healthy coping skills. She talked about how she relapsed on alcohol and this led to her overdose. She denies current SI/HI. She is remorseful for her actions. She denies cravings or urges to use alcohol. She asked for an increase in vistaril temporarily for sleep. Mental Status Exam - Vital signs Last Vital Signs Temp 98.2 F 06/15/18 07:38 Pulse 74 06/15/18 09:00 Resp 16 06/15/18 07:38 BP 109/47 06/15/18 07:38 Pulse Ox 98 06/15/18 10:00 Assessment and Plan MSE: Appearance: calm, cooperative Behavior: poor eye contact Speech: regular rate and tone Mood: "okay" Affect: flat Thought Process: organized Thought Content: denies SI/HI's and AVH's Motor Activity: ambulatory Cognition: A/O x3 Insight: variable Judgment:variable Assessment and Plan Impression: MDD, Severe Type. Alcohol Intoxication. Hx of Anxiety DO. Additional Dx: PTSD. Today the patient is calm and cooperative during the assessment. Suicide attempt was related to relapse. She [facility] an appointment [facility] on [facility]18/2018. DDx: R/O Bipolar DO, Alcohol Induced Mood DO Recommendation/Plan: Continue 1013 and Cymbalta 60 mg PO for depression/anxiety and Vistaril increased to 25mg qam and 50mg hs for anxiety. Continue Prazosin 1 mg PO HS for PTDS symptoms. Monitor the patient for hypotension. Consideration of rescinding the 1013 but will continue to monitor and determine if she meets criteria in 24 hours Dispo: [facility] level of care is recommended but she prefers outpatient. Staffed with Dr. Kristina Suarez
[2018-06-15] MEDS: MINIPRESS PO SCH (21:58)
[2018-06-15] MEDS ORDERED: VISTARIL PO SCH (22:00)
[2018-06-16] MEDS: ZOSYN/NS 4.5GM/100ML 4.5 GM/100 ML VIAL IV SCH ×2 (00:15→10:50)
[2018-06-16] MEDS ORDERED: VISTARIL PO SCH (10:00)
[2018-06-16] MEDS: CYMBALTA PO SCH (10:00)
[2018-06-16] MEDS: LOVENOX SUB-Q SCH (10:01)
[2018-06-16] MEDS: SODIUM CHLORIDE FLUSH SYRINGE 10 ML IV SCH (10:01)
[2018-06-16 11:22] VITALS: BP 140/79
--- NOTE | 2018-06-16 12:21 | Discharge Summary ---
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 Hospital course: Patient was admitted to the floor for the management of alcohol intoxication, clonapin overdose. UDS was negative and doubt about the clonapin over dose. Patient was alert and oriented by the time I evaluated her. mental health was consulted and diagnosed her with MDD, anxiety disorder and start with medications. patient said she has a psychiatrist and will follow with him. Patient denied SI, Homicidal ideations in her stay and psych rescind 1013 and discharged home in a stable conditions. I have given a script recommended by psych. Patient's CXR showed RLL consolidation but no symptoms; patient was treated empirically and discharged home. Disposition: DC-01 TO HOME OR SELFCARE Time spent for discharge: 32 minutes - Discharge Diagnoses (1) Overdose Status: Acute Qualifiers: Encounter type: initial encounter Injury intent: undetermined intent Qualified Code(s): T50.904A - Poisoning by unspecified drugs, medicaments and biological substances, undetermined, initial encounter (2) Lumbar and sacral osteoarthritis Status: Acute (3) Lumbar discogenic pain syndrome Status: Acute Core Measure Documentation - Palliative Care Palliative Care/ Comfort Measures: Not Applicable - Core Measures Any of the following diagnoses?: none Exam - Physical Exam Narrative exam: Not in cardiopulmonary distress. The patient is obese. Vital signs as documented. Head exam is unremarkable. No scleral icterus . Neck is without jugular venous distension, thyromegaly, or carotid bruits. Lungs are clear to auscultation. Cardiac exam reveals regular rate and Rhythm. First and second heart sounds normal. No murmurs, rubs or gallops. Abdominal exam reveals normal bowel sounds, no masses, no organomegaly and no aortic enlargement. Extremities are nonedematous and both femoral and pedal pulses are normal. CYCLE SPECIALIST: Alert and oriented 3. No focal weakness. - Constitutional Vitals: Temp Pulse Resp BP Pulse Ox 98.0 F 73 18 140/79 99 06/16/18 11:05 06/16/18 11:05 06/16/18 11:05 06/16/18 11:05 06/16/18 11:05 Plan Activity: no restrictions Weight Bearing Status: Full Weight Bearing Diet: low fat Additional Instructions: Patient said she will see her psychiatrist soon. Follow up with: GILBERT [facility] MD [Primary Care Provider] - 3-5 Days Prescriptions: DULoxetine [Cymbalta] 60 mg PO DAILY #30 capsule hydrOXYzine PAMOATE [Vistaril] 50 mg PO HS #30 capsule hydrOXYzine PAMOATE [Vistaril] 25 mg PO QAM #30 capsule Prazosin [Minipress] 1 mg PO HS #30 capsule
--- NOTE | 2018-06-16 13:13 | Progress Note ---
Subjective - Reason for Consult Consult date: 06/16/18 Reason for consult: Psychiatry Follow-up - Chief Complaint Chief complaint: "I will make better choices" 57-year-old AA female who presented to the ER for possible overdose and ETOH. Today the patient is calm and cooperative during the assessment. She is adamant that she made a bad choice to ingest several Klonopin pills. She stated that she has a lot to live for and look forward to seeing her psychiatrist/psychologist when discharged. She stated that she will not drink (etoh) again. She denies SI/HI's and AVH's. She denies any side effects of her medications. Mental Status Exam - Vital signs Last Vital Signs Temp 98.0 F 06/16/18 11:05 Pulse 73 06/16/18 11:05 Resp 18 06/16/18 11:05 BP 140/79 06/16/18 11:05 Pulse Ox 99 06/16/18 11:05 - Exam Narrative exam: MSE: Appearance: calm, cooperative Behavior: poor eye contact Speech: regular rate and tone Mood: "okay" Affect: congruent to mood Thought Process: linear Thought Content: denies SI/HI's and AVH's Motor Activity: ambulatory Cognition: A/O x3 Insight: appropriate Judgment: appropriate Assessment and Plan Impression: MDD, Severe Type. Alcohol Intoxication. Hx of Anxiety DO. Additional Dx: PTSD. Today the patient is calm and cooperative during the assessment. The patient is no threat to self. DDx: R/O Bipolar DO, Alcohol Induced Mood DO Suicide Risk Assessment I. This screening and assessment is based on information collected from the following sources: II. SUICIDE RISK SCREENING (within last 30 days): A.) Suicidal thoughts/behaviors: Yes SUICIDE RISK ASSESSMENT III. FACTORS THAT INCREASE RISK: A.) Demographic and Substance Use Factors: Yes (Alcohol) B.) Current/Recent Factors (within past 3 months): Psychosocial/Environmental Factors: Life Stressors Physical Illness: None Cognitive/Psychological Factors: None C.) Historical Factors: None D.) Diagnostic/Symptom/Treatment Factors: None E.) Acute Risk Factor Severity (DESC; MILD/MOD/SEVERE): Mild Other factors for this individual that increase risk: None IV. FACTORS THAT DECREASE RISK: Resilience/Protective Factors: Patient want to decrease her stress Other factors for this individual that decrease risk: Patient denies a desire to harm self V. Clinician's Formulation of Risk and Determination of level of Care: This is a 58 y.o. AA female who presented to the ER for taking several Klonopin pills. She stated that she was stressed and decided to overdose on pills. She acknowledged that she should have not ingested the pills. She stated that she will follow-up with outpatient psy/rehab services once discharged. Since being hospitalized the patient has consistently denied the desire to harm herself. Additionally, she has become insightful about how to better address her current issues. The patient is not impaired by substance. She is able to take care of her ADLs and is not at imminent risk of harm to self or others. Consequently, it is the opinion of the treatment team that the patient is at low risk of suicide and does not meet criteria to continue an involuntary psychiatric hold. Estimation of Imminent Risk: Low due to the above explanation. Determination of Level of Care based on Suicide Risk: Outpatient follow-up. Narrative description of clinical reasoning. Given the fact that the patient is willing to engage in outpatient/rehab services care and has a supportive network (), it is reasonable to expect that the patient will seek services. She is regretful of her decision and has several things in his life to look forward to. At this current time, she is not impulsive and does not have any risk factors to increase the likelihood of her impulsive behavior. Therefore, it is reasonable to expect that the patient will engage in outpatient/rehab services which will reduce further unsafe behaviors. . Plan and Interventions based on Suicide Risk: This patient will likely be stepped down to an outpatient mental health center in the community upon discharge and follow-up within 7 days of her discharge from the hospital. VII. Discharge/After Hours Support Plan: Patient can return back to the ER, call 911 or crisis line if symptoms of depression, anxiety, suicidality return. Recommendation/Plan: Continue 1013 and Cymbalta 60 mg PO for depression/anxiety, Vistaril 50 mg PO HS for anxiety, Vistaril 25 mg PO AM for anxiety, and Prazosin 1 mg PO HS for PTSD symptoms. Discussed possible suicidality/medication induced lucas with the patient reference Cymbalta. Safety contract completed with the patient. Dispo: The patient has an appt 18 Jun 2018 with her psychiatrist and psychologist at the [facility]. Staffed with Dr Liza Suarez.
--- NOTE | 2018-06-16 14:47 | Progress Note ---
Assessment and Plan Assessment and plan: Patient was admitted for suspected Klonopin overdose - Patient claims she took a lot of Klonopin and had confusion - UDS was negative - Patient was alert and oriented Aspiration pneumonia - Patient is on Zosyn MDD - continue management per psych DVT prophylaxis - Lovenox Patient is on 1013 Psych is following her Patient is cleared medically and can be discharged once psych cleared her. - Patient Problems (1) Overdose Current Visit: Yes Status: Acute Qualifiers: Encounter type: initial encounter Injury intent: undetermined intent Qualified Code(s): T50.904A - Poisoning by unspecified drugs, medicaments and biological substances, undetermined, initial encounter (2) Lumbar and sacral osteoarthritis Current Visit: No Status: Acute (3) Lumbar discogenic pain syndrome Current Visit: No Status: Acute History Interval history: Patient was seen and evaluated this morning, patient was alert and oriented. No fever, chills, or cough Hospitalist Physical - Physical exam Narrative exam: Not in cardiopulmonary distress. The patient is obese. Vital signs as documented. Head exam is unremarkable. No scleral icterus . Neck is without jugular venous distension, thyromegaly, or carotid bruits. Lungs are clear to auscultation. Cardiac exam reveals regular rate and Rhythm. First and second heart sounds normal. No murmurs, rubs or gallops. Abdominal exam reveals normal bowel sounds, no masses, no organomegaly and no aortic enlargement. Extremities are nonedematous and both femoral and pedal pulses are normal. 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 No focal weakness. - Constitutional Vitals: Temp Pulse Resp BP Pulse Ox 98.0 F 73 18 140/79 99 06/16/18 11:05 06/16/18 11:05 06/16/18 11:05 06/16/18 11:05 06/16/18 11:05 Results - Labs CBC & Chem 7: 06/13/18 04:46 06/14/18 04:51 Labs: Laboratory Last Values WBC 6.0 K/mm3 (4.5-11.0) 06/13/18 04:46 RBC 3.44 M/mm3 (3.65-5.03) L 06/13/18 04:46 Hgb 10.2 gm/dl (10.1-14.3) 06/13/18 04:46 Hct 30.6 % (30.3-42.9) 06/13/18 04:46 MCV 89 fl (79-97) 06/13/18 04:46 MCH 30 pg (28-32) 06/13/18 04:46 MCHC 33 % (30-34) 06/13/18 04:46 RDW 14.6 % (13.2-15.2) 06/13/18 04:46 Plt Count 274 K/mm3 (140-440) 06/13/18 04:46 Lymph % (Auto) Employment Specialist 06/13/18 04:46 Add Manual Diff Complete 06/13/18 04:46 Total Counted 100 06/13/18 04:46 Seg Neutrophils % Employment Specialist 06/13/18 04:46 Seg Neuts % (Manual) 19.0 % (40.0-70.0) L 06/13/18 04:46 Band Neutrophils % 0 % 06/13/18 04:46 Lymphocytes % (Manual) 76.0 % (13.4-35.0) H 06/13/18 04:46 Reactive Lymphs % (Man) 0 % 06/13/18 04:46 Monocytes % (Manual) 5.0 % (0.0-7.3) 06/13/18 04:46 Eosinophils % (Manual) 0 % (0.0-4.3) 06/13/18 04:46 Basophils % (Manual) 0 % (0.0-1.8) 06/13/18 04:46 Metamyelocytes % 0 % 06/13/18 04:46 Myelocytes % 0 % 06/13/18 04:46 Promyelocytes % 0 % 06/13/18 04:46 Blast Cells % 0 % 06/13/18 04:46 Nucleated RBC % Not Reportable 06/13/18 04:46 Seg Neutrophils # Man 1.1 K/mm3 (1.8-7.7) L 06/13/18 04:46 Band Neutrophils # 0.0 K/mm3 06/13/18 04:46 Lymphocytes # (Manual) 4.6 K/mm3 (1.2-5.4) 06/13/18 04:46 Abs React Lymphs (Man) 0.0 K/mm3 06/13/18 04:46 Monocytes # (Manual) 0.3 K/mm3 (0.0-0.8) 06/13/18 04:46 Eosinophils # (Manual) 0.0 K/mm3 (0.0-0.4) 06/13/18 04:46 Basophils # (Manual) 0.0 K/mm3 (0.0-0.1) 06/13/18 04:46 Metamyelocytes # 0.0 K/mm3 06/13/18 04:46 Myelocytes # 0.0 K/mm3 06/13/18 04:46 Promyelocytes # 0.0 K/mm3 06/13/18 04:46 Blast Cells # 0.0 K/mm3 06/13/18 04:46 WBC Morphology Not Reportable 06/13/18 04:46 Hypersegmented Neuts Not Reportable 06/13/18 04:46 Hyposegmented Neuts Not Reportable 06/13/18 04:46 Hypogranular Neuts Not Reportable 06/13/18 04:46 Smudge Cells Not Reportable 06/13/18 04:46 Toxic Granulation Not Reportable 06/13/18 04:46 Toxic Vacuolation Not Reportable 06/13/18 04:46 Dohle Bodies Not Reportable 06/13/18 04:46 Pelger-Huet Anomaly Not Reportable 06/13/18 04:46 Kate Rods Not Reportable 06/13/18 04:46 Platelet Estimate Consistent w auto 06/13/18 04:46 Clumped Platelets Not Reportable 06/13/18 04:46 Plt Clumps, EDTA Not Reportable 06/13/18 04:46 Large Platelets Not Reportable 06/13/18 04:46 Giant Platelets Not Reportable 06/13/18 04:46 Platelet Satelliting Not Reportable 06/13/18 04:46 Plt Morphology Comment Not Reportable 06/13/18 04:46 RBC Morphology Not Reportable 06/13/18 04:46 Dimorphic RBCs Not Reportable 06/13/18 04:46 Polychromasia Not Reportable 06/13/18 04:46 Hypochromasia Not Reportable 06/13/18 04:46 Poikilocytosis 1+ 06/13/18 04:46 Anisocytosis Not Reportable 06/13/18 04:46 Microcytosis Not Reportable 06/13/18 04:46 Macrocytosis Not Reportable 06/13/18 04:46 Spherocytes Not Reportable 06/13/18 04:46 Pappenheimer Bodies Not Reportable 06/13/18 04:46 Sickle Cells Not Reportable 06/13/18 04:46 Target Cells Not Reportable 06/13/18 04:46 Tear Drop Cells Not Reportable 06/13/18 04:46 Ovalocytes Not Reportable 06/13/18 04:46 Helmet Cells Not Reportable 06/13/18 04:46 Nielsen-Regan Bodies Not Reportable 06/13/18 04:46 [place] Rings Not Reportable 06/13/18 04:46 Gypsum Cells Not Reportable 06/13/18 04:46 Bite Cells Not Reportable 06/13/18 04:46 Crenated Cell Not Reportable 06/13/18 04:46 Elliptocytes Not Reportable 06/13/18 04:46 Acanthocytes (Spur) Not Reportable 06/13/18 04:46 Rouleaux Not Reportable 06/13/18 04:46 Hemoglobin C Crystals Not Reportable 06/13/18 04:46 Schistocytes Not Reportable 06/13/18 04:46 Malaria parasites Not Reportable 06/13/18 04:46 Tres Bodies Not Reportable 06/13/18 04:46 Hem Pathologist Commnt No 06/13/18 04:46 Sodium 142 mmol/L (137-145) 06/14/18 04:51 Potassium 3.9 mmol/L (3.6-5.0) 06/14/18 04:51 Chloride 108.6 mmol/L (98-107) H 06/14/18 04:51 Carbon Dioxide 23 mmol/L (22-30) 06/14/18 04:51 Anion Gap 14 mmol/L 06/14/18 04:51 BUN 10 mg/dL (7-17) 06/14/18 04:51 Creatinine 0.8 mg/dL (0.7-1.2) 06/14/18 04:51 Estimated GFR > 60 ml/min 06/14/18 04:51 BUN/Creatinine Ratio 13 % 06/14/18 04:51 Glucose 98 mg/dL (65-100) 06/14/18 04:51 Lactic Acid 1.80 mmol/L (0.7-2.0) 06/12/18 20:13 Calcium 8.1 mg/dL (8.4-10.2) L 06/14/18 04:51 Magnesium 2.00 mg/dL (1.7-2.3) 06/12/18 00:40 Total Bilirubin 0.30 mg/dL (0.1-1.2) 06/12/18 00:40 AST 32 units/L (5-40) 06/12/18 00:40 ALT 26 units/L (7-56) 06/12/18 00:40 Alkaline Phosphatase 122 units/L (35-129) 06/12/18 00:40 Total Creatine Kinase 150 units/L (30-135) H 06/12/18 00:40 Total Protein 7.6 g/dL (6.3-8.2) 06/12/18 00:40 Albumin 4.0 g/dL (3.9-5) 06/12/18 00:40 Albumin/Globulin Ratio 1.1 % 06/12/18 00:40 Urine Color Colorless (Yellow) 06/12/18 01:21 Urine Turbidity Clear (Clear) 06/12/18 01:21 Urine pH 6.0 (5.0-7.0) 06/12/18 01:21 Ur Specific [place] 1.001 (1.003-1.030) L 06/12/18 01:21 Urine Protein <15 mg/dl mg/dL (Negative) 06/12/18 01:21 Urine Glucose (UA) Neg mg/dL (Negative) 06/12/18 01:21 Urine Ketones Neg mg/dL (Negative) 06/12/18 01:21 Urine Blood Neg (Negative) 06/12/18 01:21 Urine Nitrite Neg (Negative) 06/12/18 01:21 Urine Bilirubin Neg (Negative) 06/12/18 01:21 Urine Urobilinogen < 2.0 mg/dL (<2.0) 06/12/18 01:21 Ur Leukocyte Esterase Neg (Negative) 06/12/18 01:21 Urine WBC (Auto) < 1.0 /HPF (0.0-6.0) 06/12/18 01:21 Urine RBC (Auto) 1.0 /HPF (0.0-6.0) 06/12/18 01:21 Hyaline Casts 1 /LPF 06/12/18 01:21 Salicylates < 0.3 mg/dL (2.8-20.0) L 06/12/18 00:40 Urine Opiates Screen Presumptive negative 06/12/18 01:21 Urine Methadone Screen Presumptive negative 06/12/18 01:21 Acetaminophen < 5.0 ug/mL (10.0-30.0) L 06/12/18 00:40 Ur Barbiturates Screen Presumptive negative 06/12/18 01:21 Ur Phencyclidine Scrn Presumptive negative 06/12/18 01:21 Ur Amphetamines Screen Presumptive negative 06/12/18 01:21 U Benzodiazepines Scrn Presumptive negative 06/12/18 01:21 Urine Cocaine Screen Presumptive negative 06/12/18 01:21 U Marijuana (THC) Screen Presumptive negative 06/12/18 01:21 Drugs of Abuse Note Disclamer 06/12/18 01:21 Plasma/Serum Alcohol 0.14 % (0-0.07) H 06/12/18 00:40
== END 2018-06-16 13:40 | disposition home or self-care (01) | DRG 871 ==
LOC: ED 00:26 → 4A 05:13 → IMCU 08:11 → 4A 08:44
PROVIDERS: ADMIT Internal Medicine; ATTEND Internal Medicine
DX: A41.9 Sepsis, unspecified organism (principal); J69.0 Pneumonitis due to inhalation of food and vomit; F32.2 Major depressive disorder, single episode, severe without psychotic features; T42.4X2A Poisoning by benzodiazepines, intentional self-harm, initial encounter; F41.9 Anxiety disorder, unspecified; F43.10 Post-traumatic stress disorder, unspecified; Y90.0 Blood alcohol level of less than 20 mg/100 ml; M47.817 Spondylosis without myelopathy or radiculopathy, lumbosacral region; X58.XXXA Exposure to other specified factors, initial encounter; F10.929 Alcohol use, unspecified with intoxication, unspecified; Z79.51 Long term (current) use of inhaled steroids; Z79.899 Other long term (current) drug therapy; Y92.098 Other place in other non-institutional residence as the place of occurrence of the external cause; Z88.5 Allergy status to narcotic agent; Y93.89 Activity, other specified; Y99.8 Other external cause status
CPT/HCPCS: 36415; 70450; 71045; 80048; 80053; 80307; 80320; 81001; 82140; 82550; 83735; 85007; 85025; 85027; 87040; 93005; 93010; 94760; G0378; G0480; J1650; J1956; J2543; J7030; Q0177

== ENCOUNTER 2018-11-12 16:06 | Emergency (ER) | payer BC, MEDICARE, OTHER ==
[2018-11-12] MEDS ORDERED: IBUPROFEN PO ONE (16:53)
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
[2018-11-12 17:20] VITALS: BP 125/73
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
== END 2018-11-12 17:55 | disposition home or self-care (01) ==
LOC: ED 16:06
DX: S13.4XXA Sprain of ligaments of cervical spine, initial encounter (principal); M19.90 Unspecified osteoarthritis, unspecified site; F32.9 Major depressive disorder, single episode, unspecified; F41.9 Anxiety disorder, unspecified; F43.10 Post-traumatic stress disorder, unspecified; Z88.5 Allergy status to narcotic agent; Z79.1 Long term (current) use of non-steroidal anti-inflammatories (NSAID); Z98.890 Other specified postprocedural states; V89.2XXA Person injured in unspecified motor-vehicle accident, traffic, initial encounter; Y92.488 Other paved roadways as the place of occurrence of the external cause; Y93.89 Activity, other specified; Y99.8 Other external cause status
CPT/HCPCS: 72040; 99284